=== PATIENT | female | born 1970 | race African-American/Black ===

== ENCOUNTER 2023-10-24 14:30 | Emergency (ER) | payer BC, SELFPAY ==
[2023-10-24 14:39] VITALS: BP 165/92; PULSE 107; RESP 16; TEMP 37.1; O2SAT 99
[2023-10-24 14:40] VITALS: BP 165/92; PULSE 107; RESP 16; TEMP 37.1; O2SAT 99
--- NOTE | 2023-10-24 14:56 | ED.ABDPAIN ---
HPI - Abdominal Pain General Chief Complaint: Abdominal Pain Stated Complaint: STOMACH PAIN Time Seen by Provider: 10/24/23 14:44 Source: patient and RN notes reviewed Mode of arrival: ambulatory Limitations: no limitations and language barrier (daughter assisted per pt request) History of Present Illness HPI narrative: 53-year-old female presented for complaint of lower abdominal pain. Onset last night. She rates pain 10/10, states it flares up and calms down. Pt induced vomiting once in attempt to help the pain. Otherwise denies nausea/vomiting, diarrhea, blood in stool, or fever. Reports decreased appetite today. At roasted chicken and salad last night, no one else sick. Related Data Allergies Allergy/AdvReac Type Severity Reaction Status Date / Time No Known Allergies Allergy Unverified 10/24/23 14:39 Review of Systems Review of Systems: CONSTITUTIONAL: Denies body aches, fever, chills ENT: Denies rhinorrhea, congestion CARDIOVASCULAR: Denies chest pain, palpitations, or edema. RESPIRATORY: Denies cough or dyspnea. GASTROINTESTINAL: Endorses abdominal pain, Denies nausea, vomiting, diarrhea, hematochezia, melena, hematemesis GENITOURINARY: Denies dysuria, hematuria, or CVA tenderness. SKIN: Denies rash, itching, or wounds. MUSCULOSKELETAL: Denies back pain, joint pain, or myalgia. NEUROLOGIC: Denies headache All systems reviewed & are unremarkable except as noted in HPI and below PMFSH Past Medical History Medical History (Updated 10/24/23 @ 15:06 by Andreina Varela APRN) Benign essential HTN Social History Social History Social History: Smoking status: Never smoker Second hand tobacco smoke exposure: No Alcohol intake: current Alcohol use details: occasionally Substance use: never Substance use type: does not use Living arrangements: with family Occupation/Education: occupation Gender identity (if verbalized by the patient): Female Sexual Orientation (if Verbalized by the Patient): Straight or Heterosexual Comments At time of signature, I have reviewed and agree with nursing past medical, surgical, social and family history unless otherwise noted. Please see nursing chart for further information. There is no relevant family history pertinent to the presenting complaint Exam Narrative: GENERAL: Well-appearing, and in no acute distress. EYES: EOMI. Conjunctivae normal. ENT: Mucous membranes pink and moist. CHEST: No respiratory distress. Clear to auscultation. HEART: Regular rate and rhythm. No murmur appreciated. Normal peripheral pulses. ABDOMEN: abd soft, nondistended, normal active bowel sounds. Tender abdomen bilateral lower quadrants; No guarding, rebound tenderness, asymmetry EXTREMITIES: Normal range of motion. No edema. SKIN: Warm, dry, no rash. Capillary refill normal. Normal skin turgor. NEURO: No focal deficits. Alert and oriented x3. PSYCH: Normal affect. Course Course Emergency Course: Patient is aware of diagnosis, understands and agrees to treatment plan. Anticipatory guidance given. Patient agrees to follow-up as directed and is aware of reasons to seek care at the emergency department. Portions of this record may have been created with voice recognition software Level of Care: Express Care Visit Vital Signs Vital signs: Vital Signs Temperature 98.8 F 10/24/23 14:39 Pulse Rate 107 H 10/24/23 14:39 Respiratory Rate 16 10/24/23 14:39 Blood Pressure 165/92 H 10/24/23 14:39 Pulse Oximetry 99 10/24/23 14:39 Temperature 98.8 F 10/24/23 14:40 Pulse Rate 107 H 10/24/23 14:40 Respiratory Rate 16 10/24/23 14:40 Blood Pressure 165/92 H 10/24/23 14:40 Pulse Oximetry 99 10/24/23 14:40 Transfer Transfered to: [facility] Transportation: Other (Private vehicle) Transfer rationale: Pt is agreeable to transfer. Requests transfer to [facility]
== END 2023-10-24 14:58 | disposition short-term general hospital (02) ==
PROVIDERS: Emergency Provider Nurse Practitioner Family; PCP Family Medicine
DX: R10.30 Lower abdominal pain, unspecified (principal); I10 Essential (primary) hypertension
CPT/HCPCS: 99212; G0463

== ENCOUNTER 2023-10-24 15:23 | Emergency (ER) | payer BC, SELFPAY ==
--- NOTE | ~2023-10-24 | CT_ITS ---
EXAMINATION: CT abdomen pelvis w con DATE: 10/24/2023 17:19 INDICATION: lower abdominal pain, rule out appendicitis TECHNIQUE: Computed tomography (CT) of the abdomen and pelvis was performed with 100 mL Omnipaque-350 intravenous contrast. Automated exposure control and iterative reconstruction technique were employe d. The dose-length product was 470.44 mGy-cm. COMPARISON: None. FINDINGS: Lower thorax: Unremarkable Liver: Right lobe liver cyst. Biliary/Gallbladder: Gallbladder is normal. No bile duct dilation. Pancreas: No mass or duct dilation. Spleen: Normal. Adrenals:No mass. Kidneys: No suspicious mass, obstructing stone, or hydronephrosis. Simple right midpole cyst. GI tract: Small hiatal hernia. Mild distal esophageal and gastric wall edema. No small or large bowel dilation. Normal appendix. Mesentery/Peritoneum: No ascites, mass, or free air. Retroperitoneum: No mass. Pelvis: Focal 1.5 cm area of of anterior urinary bladder wall thickening to 7 mm. Bilateral peduncula comfort fibroids. Normal ovaries. Small volume free pelvic fluid. Soft Tissues: Soft tissues and body wall unremarkable. Bones: No acute osseous finding. IMPRESSION: Mild esophagitis/gastritis. Normal appendix. Pedunculated bilateral uterine fibroids. Reviewed, dictated and finalized at location K.
[2023-10-24 15:32] VITALS: BP 173/96; PULSE 104; RESP 18; TEMP 36.6; O2SAT 99
--- NOTE | 2023-10-24 16:23 | ED.ABDPAIN ---
HPI - Abdominal Pain General Chief Complaint: Abdominal Pain Stated Complaint: ABD Pain Time Seen by Provider: 10/24/23 15:49 Source: patient Mode of arrival: ambulatory Limitations: no limitations History of Present Illness HPI narrative: This is a 53-year-old female who presents to the ED with chief complaint of lower abdominal pain beginning last night. It did seem to start after they ate. She is here with her daughter who is translating. Daughter states family ate the same thing and has not had any problems. Patient reports the pain does seem to come and go a flares up to 10/10 at its worse. Denies significant nausea, vomiting, diarrhea. Denies GI bleeding symptoms or fevers. Does endorse decreased appetite. No abdominal surgical history Related Data Allergies Allergy/AdvReac Type Severity Reaction Status Date / Time No Known Allergies Allergy Verified 10/24/23 15:38 Review of Systems Review of Systems: All systems as dictated in [facility] Past Medical History Medical History (Updated 10/24/23 @ 18:24 by Alec Caraballo PA-C) Benign essential HTN Social History Social History Social History: Smoking status: Never smoker Second hand tobacco smoke exposure: No Alcohol intake: current Alcohol use details: occasionally Substance use: never Substance use type: does not use Living arrangements: with family Occupation/Education: occupation Gender identity (if verbalized by the patient): Female Sexual Orientation (if Verbalized by the Patient): Straight or Heterosexual Exam Narrative: GENERAL: Well-appearing, well-nourished, and in no acute distress. HEAD: Normocephalic, atraumatic. EYES: PERRLA and EOMI. ENT: Nares clear, no rhinorrhea or epistaxis. Mucous membranes moist. Oropharynx without tonsillar hypertrophy exudate or other lesions. NECK: Supple. No adenopathy or masses. CHEST: No respiratory distress. Clear to auscultation. No wheezes rales or rhonchi HEART: Regular rate and rhythm. No murmur heard. Normal peripheral pulses. ABDOMEN: Mild tenderness across the lower abdomen. Soft, nondistended, normal active bowel sounds. MSK: Normal range of motion. No edema. SKIN: Warm, dry, no rash. NEURO: Alert and oriented x3. No focal deficits. PSYCH: Normal mood and affect. Course Vital Signs Vital signs: Vital Signs Temperature 97.8 F 10/24/23 15:32 Pulse Rate 104 H 10/24/23 15:32 Respiratory Rate 18 10/24/23 15:32 Blood Pressure 173/96 H 10/24/23 15:32 Pulse Oximetry 99 10/24/23 15:32 Oxygen Delivery Room Air 10/24/23 15:32 Temperature 97.8 F 10/24/23 15:32 Pulse Rate 104 H 10/24/23 15:32 Respiratory Rate 18 10/24/23 15:32 Blood Pressure 173/96 H 10/24/23 15:32 Pulse Oximetry 99 10/24/23 15:32 Oxygen Delivery Room Air 10/24/23 15:32 MDM - Abdominal Pain MDM Narrative Medical decision making narrative: This is a 53-year-old female who presents to the ED with chief complaint of lower abdominal pain ongoing for 1 day. Comes and goes in waves. Vitals show initial elevated blood pressure and mild her or. No fever. Exam remarkable for the above. She is otherwise well-appearing Lab work shows mildly elevated white count of 11 4. CMP unremarkable. Urinalysis shows 2+ leuks, to 20 whites and +bacteria indicating acute UTI. Culture is pending. CT abdomen and pelvis with IV contrast: Mild esophagitis/gastritis. Normal appendix. Pedunculated bilateral uterine fibroids. . Symptoms and presentation consistent with bladder infection. She is resting comfortably on exam. Asymptomatic. Did not require any pain or nausea intervention here. Rx for ibuprofen and cephalexin sent. Pt will be discharged in stable condition. Return precautions given and supportive measures discussed. Pt is understanding and agreeable with plan for discharge and follow-up with PCP. Lab
[2023-10-24 16:44] LABS: Basophils Percent Auto 0.2 % (0.2-1.2); Eosinophils Absolute Auto 0.1 K/mm3 (0-0.3); Eosinophils Percent Auto 0.7 % (0-4.4); Hematocrit 40.2 % (37.0-47.0); Hemoglobin 13.9 g/dL (12.0-15.0); Immature Granulocyte Absolute 0.03 K/mm3 (0.00-0.031); Immature Granulocyte Percent A 0.3 % (0-0.5); Lymphocytes Absolute Auto 1.89 K/mm3 (0.9-3.2); Lymphocytes Percent Auto 16.6 % (18.3-44.2); Mean Corpuscular HGB Conc 34.6 g/dl (32-36); Mean Corpuscular Hemoglobin 29.4 pg (26-34); Mean Corpuscular Volume 85.2 fl (80-100); Mean Platelet Volume 8.2 fl (7.4-10.4); Monocytes Absolute Auto 0.2 K/mm3 (0.1-0.6); Monocytes Percent Auto 1.9 % (2.6-8.5); Neutrophils Absolute Auto 9.2 K/mm3 (1.3-6.7); Neutrophils Percent Auto 80.3 % (45.5-73.1); Platelet Count Result 277 k/mm3 (150-375); Red Blood Count 4.72 M/mm3 (4.2-5.4); Red Cell Distribution Width 12.5 % (11.5-14.5); White Blood Count 11.4 K/mm3 (4.5-10.0)
[2023-10-24 16:53] LABS: Alanine Aminotransferase 23 U/L (6-35); Albumin Level 4.3 g/dL (3.5-5.1); Alkaline Phosphatase 77 U/L (38-126); Anion Gap 7 mmol/L (4-12); Aspartate Amino Transferase 26 U/L (14-36); Bilirubin,Total 0.4 mg/dL (0.2-1.3); Blood Urea Nitrogen 10 mg/dL (7-17); Calcium 9.1 mg/dL (8.4-10.2); Carbon Dioxide 27 mmol/L (22-30); Chloride 103 mmol/L (98-107); Estimated CRCL calculation 135 ml/min; Estimated Glomerular Filt Rate > 60; Glucose 114 mg/dL (65-110); Lipase 48 U/L (23-300); Potassium 3.9 mmol/L (3.4-5.0); Sodium 137 mmol/L (137-145)
[2023-10-24 16:54] LABS: Lactic Acid Reflex 1.1 mmol/L (0.7-2.0)
[2023-10-24] MEDS: SODIUM CHLORIDE 0.9% IV 1,000 ML 999 ML IV CONT (16:54)
[2023-10-24 16:57] VITALS: BP 166/91; O2SAT 98
[2023-10-24 17:00] LABS: Appearance Urine Cloudy (Clear); Bacteria Urine 1+ /hpf; Bilirubin Urine Negative (Negative); Blood Urine Non-Hemolyzed Trace (Negative); Color Urine Yellow (Yellow); Glucose Urine UA Negative (Negative); Ketones Urine Negative (Negative); Leukocyte Esterase Ur 2+ LEU/UL (Negative); Need Manual Microscopic Reviewed; Nitrate Urine Negative (Negative); Non Pathogenic Casts 0-2; Protein Urine Negative (Negative); RBC Urine 0-2 /hpf (0-2); Specific Grav Ur 1.005 (1.001-1.035); Squamous Epithelial Cell Urine Many /hpf (Few); Urobilinogen Urine 0.2 mg/dL (<2.0); pH Urine 7.5 (5.0-9.0)
[2023-10-24 17:01] VITALS: BP 169/97; O2SAT 99
[2023-10-24 17:01] LABS: Add Urine Microscopic? YES
[2023-10-24 18:48] VITALS: BP 151/84; PULSE 67; RESP 18; TEMP 36.8; O2SAT 100
== END 2023-10-24 18:49 | disposition home or self-care (01) ==
PROVIDERS: Emergency Provider Physician Assistant; PCP Family Medicine
DX: N30.90 Cystitis, unspecified without hematuria (principal); I10 Essential (primary) hypertension; K20.90 Esophagitis, unspecified without bleeding; K29.70 Gastritis, unspecified, without bleeding; D25.9 Leiomyoma of uterus, unspecified
CPT/HCPCS: 36415; 74177; 80053; 81001; 83605; 83690; 85025; 87086; 87088; 96360; 99212; 99284; G0463; J7030; Q9967

== ENCOUNTER 2025-06-02 21:21 | Emergency (ER) | payer OTHER, SELFPAY ==
[2025-06-02 21:32] VITALS: BP 170/95; PULSE 88; RESP 16; TEMP 36.3; O2SAT 99
[2025-06-02 22:07] LABS: Add Urine Microscopic? YES; Appearance Urine Turbid (Clear); Glucose Urine UA Negative (Negative); Leukocyte Esterase Ur 2+ LEU/UL (Negative); Need Manual Microscopic Reviewed; Nitrate Urine Negative (Negative); Specific Grav Ur 1.021 (1.001-1.035)
[2025-06-02 22:57] VITALS: PULSE 87; RESP 16; O2SAT 97
--- NOTE | 2025-06-02 23:36 | ED_ITS ---
HPI - Female Genitourinary General Chief complaint: Urogenital-Female Stated complaint: Dysuria,hematuria Time Seen by Provider: 06/02/25 23:17 History of Present Illness HPI Narrative: 54-year-old female presenting to the emergency department today with urinary tract infection symptoms. She endorses dysuria, urgency and frequency as well as some hematuria this morning. No history of urinary tract infections or cystitis. No traumatic injuries. No fever, chills, abdominal pain, back pain, nausea or vomiting. She endorses using a pessary for some uterine prolapse and has been having pain with this recently after the symptoms started. Denies any other medical complaints. Related Data Allergies Allergy/AdvReac Type Severity Reaction Status Date / Time No Known Allergies Allergy Verified 05/26/25 15:13 Review of Systems Review of Systems: As reviewed above in HPI All systems reviewed & are unremarkable except as noted in HPI and below PMFSH Past Medical History Medical History Benign essential HTN Social History Social History Social History: Smoking status: Never smoker Second hand tobacco smoke exposure: No Alcohol intake: current Alcohol use details: occasionally Substance use: never Substance use type: does not use Lack of Transportation: No Lack of Food: Never True Current Housing: I Have Housing Concerned About Future Housing: No Difficulty Paying Gas/Electric Bills: No Difficulty Paying for Meds: No Currently Unemployed: YES Education: Don't Know Difficulty w/ Childcare or Family Care: No Living arrangements: with family Occupation/Education: occupation Gender identity (if verbalized by the patient): Female Sexual Orientation (if Verbalized by the Patient): Straight or Heterosexual Exam Narrative: GENERAL: [Well-appearing, well-nourished, and in no acute distress.] HEAD: [Normocephalic, atraumatic.] EYES: [PERRLA and EOMI.] ENT: Nares clear, no rhinorrhea or epistaxis. Mucous membranes moist. NECK: Supple. CHEST: [Clear to auscultation. No respiratory distress.] HEART: [Regular rate and rhythm]. No murmur heard. [Normal peripheral pulses.] ABDOMEN: [Soft, nondistended], [nontender], [No rigidity or guarding] EXTREMITIES: Normal range of motion. [No edema.] SKIN: Warm, dry, no rash. NEURO: [No focal deficits]. Alert and oriented [x3.] PSYCH: [Normal mood and affect.] Course Vital Signs Vital signs: Vital Signs Temperature 36.3 C L 06/02/25 21:32 Pulse Rate 88 06/02/25 21:32 Respiratory Rate 16 06/02/25 21:32 Blood Pressure 170/95 H 06/02/25 21:32 Pulse Oximetry 99 06/02/25 21:32 Oxygen Delivery Room Air 06/02/25 21:32 Temperature 36.3 C L 06/02/25 21:32 Pulse Rate 87 06/03/25 00:17 Respiratory Rate 18 06/03/25 00:17 Blood Pressure 169/99 H 06/03/25 00:17 Pulse Oximetry 96 06/03/25 00:17 Oxygen Delivery Room Air 06/02/25 22:57 [facility] Narrative Medical decision making narrative: 54-year-old female presenting to the emergency department today with urinary t ract infection symptoms. She endorses dysuria, urgency and frequency as well as some hematuria this morning. No history of urinary tract infections or cystitis. No traumatic injuries. No fever, chills, abdominal pain, back pain, nausea or vomiting. She endorses using a pessary for some uterine prolapse and has been having pain with this recently after the symptoms started. Denies any other medical complaints. Patient has a benign abdominal physical examination. He mildly hypertensive but otherwise asymptomatic from this. No tachycardia, fever, hypoxemia. Soft nontender nondistended abdomen. Symptoms consistent with urinary tract infection versus cystitis. Likely source is that she uses a pessary and may have entry of some bacteria into her system. No purulent discharge or any systemic symptoms of infection. Urinary tract infection shows evidence of cystitis and UTI. Culture sent. Discussed this with the patient and family members at bedside. Will trial antibiotic course as well as some phenazopyridine for burning urination pain. Given prescriptions for Bactrim and 1st dose here. Safe for discharge with PCP follow-up instructions and return precautions. Differential Diagnosis Differential Diagnosis: Symptoms consistent with urinary tract infection versus cystitis. Lab Data [facility] Lab Attestation statement: I personally reviewed the patient's lab results. Labs: Lab Results 06/02/25 Range/Units 21:52 Urine Color [place] H (Yellow) Urine Appearance Turbid H (Clear) Urine pH 8.0 (5.0-9.0) Ur Specific [place] 1.021 (1.001-1.035) Urine Protein 3+ H (Negative) mg/dL Urine Glucose (UA) Negative (Negative) mg/dL Urine Ketones Negative (Negative) mg/dL Ur Blood (Man) 3+ H (Negative) Urine Nitrate Negative (Negative) Urine Bilirubin Negative (Negative) Urine Urobilinogen 0.2 (<2.0) mg/dL Add Ur Microanalysis Reviewed Leukocyte Esterase Rfl 2+ H (Negative) ADRIANA/UL Urine RBC >100 H (0-2) /hpf Urine WBC 51-100 H (0-3) /hpf Ur Squamous Epith Cells Few (Few) /hpf Urine Bacteria 4+ H /hpf Urine Casts 3-5 Discharge Plan Discharge Clinical Impression: Cystitis, Urinary tract infection Patient Disposition: Home Condition: Stable Instructions: Antibiotic Form, Urinary Tract Infection in Women (DC) Additional Instructions: Urinary analysis shows bacteria, white blood cells, blood. Symptoms consistent with a urinary tract infection and cystitis. We will treat this with a course of antibiotics and medications for pain and symptoms. Follow-up with regular doctor. Refrain from using the pessary device until infection symptoms resolved. Return with any emergent concerns or worsening issues at any time. Patient Language: Filipino Prescriptions: New sulfamethoxazole-trimethoprim [Bactrim DS] 800-160 mg tablet 1 tablet PO Q12H Qty: 14 0RF phenazopyridine 200 mg tablet 200 mg PO TID Qty: 6 0RF No Action irbesartan-hydrochlorothiazide 150-12.5 mg tablet 1 tablet PO DAILY Qty: 90 4RF clobetasol 0.05 % cream 1 applic topical DAILY Qty: 60 0RF triamcinolone acetonide 0.1 % cream 1 applic topical BID Qty: 60 0RF Follow-up/Referrals: Justus Meza MD [Primary Care Provider, [facility]] Time of Disposition: 23:44
[2025-06-02] MEDS: PHENAZOPYRIDINE HCL 100 MG TABLET 200 MG PO (23:53)
[2025-06-02] MEDS: SULFAMETHOXAZOLE/TRIMETHOPRIM 800/160 MG DS TABLET 1 TAB PO (23:53)
[2025-06-03 00:17] VITALS: BP 169/99; PULSE 87; RESP 18; O2SAT 96
== END 2025-06-03 00:19 | disposition home or self-care (01) ==
PROVIDERS: Physician Assistant; Emergency Provider Student in an Organized Health Care Education/Training Program; PCP Family Medicine
DX: N39.0 Urinary tract infection, site not specified (principal); I10 Essential (primary) hypertension
CPT/HCPCS: 81001; 87086; 99283; A9270